=== PATIENT | female | born 1995 | race Caucasian/White ===

== ENCOUNTER 2022-01-05 19:13 | Emergency (ER) | payer BC ==
[~2022-01-05] VITALS: Ht 177.8 cm; Wt 67.1 kg
[2022-01-05 19:20] VITALS: BP 113/79
--- NOTE | 2022-01-05 19:42 | ED EENT ---
History of Present Illness General Chief Complaint: Laceration Stated Complaint: MOUTH INJURY Source: patient Exam Limitations: no limitations (CHIP MARTINEZ) History of Present Illness Date Seen by Provider: Jan 05, 2022 Time Seen by Provider: 19:37 Initial Comments Patient is a 26-year-old female presents ED laceration above her upper lip. This occurred 30 minutes ago. Attempted to take down a TV with her significant other when the [employer] box fell hitting her lip causing a superficial laceration. Bleeding controlled direct pressure. Denies of any dental tenderness. Not up-to-date her tetanus but refused tetanus shot. she is concerned for possible laceration underneath her upper lip. (CHIP MARTINEZ) Allergies and Home Medications Patient Home Medication List Home Medication List Reviewed: Yes (CHIP MARTINEZ) Review of Systems Review of Systems Constitutional: No chills, No diaphoresis, No malaise, No weakness Eyes: Denies Blurred Vision, Denies Drainage, Denies Decreased Acuity Ears: Denies Dizziness, Denies Pain, Denies Tinnitus, Denies Bloody Discharge Nose: denies clots, denies congestion Mouth: denies clots, denies loose teeth Throat: denies pain, denies swelling Respiratory: No cough, No dyspnea on exertion Cardiovascular: No chest pain Gastrointestinal: No abdominal pain, No diarrhea, No melena, No nausea, No vomiting Musculoskeletal: No back pain Skin: other (laceration) (CHIP MARTINEZ) All Other Systems Reviewed Negative Unless Noted: Yes (CHIP MARTINEZ) Physical Exam Vital Signs Vital Signs - First Documented 01/05/22 19:20 Temp 36.2 Pulse 101 Resp 18 B/P (MAP) 113/79 (90) Pulse Ox 100 O2 Delivery Room Air (RONNI,BRYSON K DO) Height, Weight, BMI Height: '" Weight: lbs. oz. kg; BMI Method: General Appearance: WD/WN, no apparent distress Eyes: bilateral eye normal inspection, bilateral eye PERRL, bilateral eye EOMI Ears: bilateral ear auricle normal, bilateral ear canal normal, bilateral ear TM normal Mouth/Throat: other (Less than 1 cm laceration above the right upper lip. No adipose involvement. Skin is approximated. No mucosal lining of the mouth involvement. No dental tenderness) Neck: non-tender, full range of motion, supple Cardiovascular: regular rate, rhythm, no edema, no gallop, no JVD Respiratory: chest non-tender, lungs clear, normal breath sounds, no respiratory distress, no accessory muscle use Gastrointestinal: normal bowel sounds, non tender, soft, no organomegaly Neurologic/Psychiatric: water server II-XII nml as tested, no motor/sensory deficits, a lert Skin: warm/dry, other (Superficial less than 1 cm laceration above her right upper lip. No adipose involvement) (CHIP MARTINEZ) Progress/Results/Core Measures Results/Orders Vital Signs/I&O 01/05/22 19:20 Temp 36.2 Pulse 101 Resp 18 B/P (MAP) 113/79 (90) Pulse Ox 100 O2 Delivery Room Air (BRYSON RUDOLPH DO) Departure Communication (PCP) Very superficial laceration to the upper lip. Skin is approximated. No recommendation of sutures. Bleeding controlled. Irrigated here. No mucosal involvement. No dental involvement. Discussed with patient recommend Neosporin and bandage. This should heal without any intervention. She refused tetanus shot. Return precaution were discussed with patient. Low impact injury (CHIP MARTINEZ) Impression Primary Impression: Facial laceration Disposition: HOME, SELF-CARE Condition: Stable Departure-Patient Inst. Decision time for Depature: 19:41 (CHIP MARTINEZ) [place]errals: [facility] [place] Instructions: Wound Care ATTENDING PHYSICIAN NOTE: I WAS PHYSICALLY PRESENT ER PHYSICIAN, BUT I WAS NOT INVOLVED IN ANY DECISION MAKING OR ANY CARE OF THIS PATIENT. (BRYSON RUDOLPH DO) CHIP MARTINEZ Jan 05, 2022 19:42 BRYSON RUDOLPH DO Jan 06, 2022 04:39
== END 2022-01-05 19:45 | disposition home or self-care (01) ==
LOC: ER 19:19
DX: S01.511A Laceration without foreign body of lip, initial encounter (principal); W20.8XXA Other cause of strike by thrown, projected or falling object, initial encounter
CPT/HCPCS: 99282